=== PATIENT | female | born 1960 | race Caucasian/White ===

== ENCOUNTER 2020-06-12 09:19 | Emergency (ER) | payer SELFPAY ==
[2020-06-12 09:24] VITALS: BP 141/74; PULSE 73; RESP 16; TEMP 36.9; O2SAT 100
--- NOTE | 2020-06-12 09:25 | ED.EYEPROB ---
HPI - Eye Problem General Chief complaint: Eye Problems Stated complaint: both eyes are red/swollen Time Seen by Provider: 06/12/20 09:25 Source: patient and RN notes reviewed History of Present Illness HPI Narrative: Patient is a 60-year-old female who presents the urgent care with complaints of bilateral eye redness, swelling, and itchiness. Patient states that it is been reoccurring since the beginning of summer however this seems to be worse in the last 2 days. Patient states that she has followed up with her doctor and was recommended to take Zyrtec and use a dry eyedrops. 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 Denies any changes in vision. Denies any known injury to the eyes. Denies any recent changes in cream. No other acute complaints. No acute distress noted. Patient aware of the plan of care. Some parts of this dictation were generated by voice recognition software and may contain typographical and/or grammatical inaccuracies. Related Data Allergies Allergy/AdvReac Type Severity Reaction Status Date / Time No Known Allergies Allergy Unverified 04/07/12 12:26 Review of Systems Review of Systems: Narrative: CONSTITUTIONAL: Denies fever, chills, or sweats. EYES: Reports of bilateral surrounding eyes redness, itchiness and swelling ENT: Denies rhinorrhea, congestion, sore throat, or otalgia. CARDIOVASCULAR: Denies chest pain, palpitations, or edema. RESPIRATORY: Denies cough or dyspnea. GASTROINTESTINAL: Denies abdominal pain, nausea, vomiting, or diarrhea. GENITOURINARY: Denies dysuria or hematuria. SKIN: Denies rash or itching. MUSCULOSKELETAL: Denies back pain, joint pain, or myalgia. NEUROLOGIC: Denies headache, numbness, or weakness. All other systems reviewed are negative, except as documented in HPI. PMFSH Social History Social History Smoking status: Light tobacco smoker Comments At the time of my signature, I reviewed and agree with the nursing past medical, surgical, social, and family history. There is no relevant family history pertinent to the patient complaint. Exam Narrative: Exam Narrative: GENERAL: This is a well-nourished, well-developed patient, in no apparent distress. HEAD: normocephalic, atraumatic. EYES: PERRL. Sclera clear/white. Vision is grossly intact. Conjunctiva-normal. Notable surrounding irritation with mild swelling to bilateral upper eyelid. EARS: External ears normal, NOSE: External nose normal with no obvious nasal discharge, nares without redness, no rhinorrhea. THROAT: Mucous membranes moist NECK: Neck supple SKIN: warm, intact with no suspicious lesions or rash, good texture and turgor. NEURO: awake, alert, and oriented to person, place and time. There were no obvious focal neurologic abnormalities. EXTREMITIES: No clubbing, cyanosis, or edema. Course Vital Signs Vital signs: Vital Signs Temperature 98.4 F 06/12/20 09:24 Pulse Rate 73 06/12/20 09:24 Respiratory Rate 16 06/12/20 09:24 Blood Pressure 141/74 H 06/12/20 09:24 Pulse Oximetry 100 06/12/20 09:24 Temperature 98.4 F 06/12/20 09:24 Pulse Rate 73 06/12/20 09:24 Respiratory Rate 16 06/12/20 09:24 Blood Pressure 141/74 H 06/12/20 09:24 Pulse Oximetry 100 06/12/20 09:24 Reviewed?patient is informed that they may have pre-hypertension or hypertension based on a blood pressure reading in the department. I recommend the patient call the primary care provider listed on their discharge instructions or a physician of their choice this week to arrange follow-up for further evaluation of possible pre-hypertension or hypertension. MDM - Eye Problem MDM Narrative Medical decision making narrative: Advised the patient to complete steroid regimen as prescribed. Use Aquaphor to the surrounding irritation. Make sure to eat and drink with the medication. Continue to use warm/cool compresses in
== END 2020-06-12 09:55 | disposition home or self-care (01) ==
PROVIDERS: Emergency Provider Nurse Practitioner Family; PCP Internal Medicine
DX: H01.9 Unspecified inflammation of eyelid (principal); F17.200 Nicotine dependence, unspecified, uncomplicated
CPT/HCPCS: 99213; G0463